=== PATIENT | female | born 1990 | race African-American/Black ===

== ENCOUNTER 2024-08-26 10:33 | Outpatient (CLI) | payer OTHER, SELFPAY ==
--- NOTE | ~2024-08-26 | US_ITS ---
EXAMINATION: US OB /maternal detail DATE: 08/26/2024 12:04 INDICATION: Encounter for supervision of normal . TECHNIQUE: Real-time ultrasound of the pelvis was performed. COMPARISON: None. FINDINGS: There is a single living fetus in vertex presentation. The placenta is anterior, 5.3 cm from the cer vix. heart rate is 141 beats per minute (bpm). The amniotic fluid volume is subjectively normal . The deepest vertical pocket is 5.2 cm. The cervical length is 3.2 cm on transabdominal images, whic h is normal. There is a nabothian cyst in the cervix. The following biometric data were obtained: Biparietal diameter (BPD): 5.2 cm; head circumference (HC): 19.1 cm; abdominal circumference (AC): 16 .5 cm; femur length (FL): 3.6 cm. These measurements are concordant. Estimated weight is 431 g +/- 65 g, which correlates with the 17th percentile when 12/29/24 is u sed as estimated date of delivery. As single measurements, these parameters are each equal to the following estimated gestational ages: BPD: 21 weeks 4 days. HC: 21 weeks 2 days. AC: 21 weeks 4 days. FL: 21 weeks 4 days. estimated gestational age based solely on measurements from this exam is 21 weeks 4 days +/- 1 weeks 4 days. The cerebral ventricles, cerebellum, cisterna magna, nuchal fold, lip, and spine are normal. The hear t is normal. The diaphragm, stomach, kidneys, and bladder are normal. There are two umbilical arterie s to yield a 3-vessel cord. The cord insertion is normal. IMPRESSION: 1. Single living fetus in vertex presentation. 2. Estimated weight is 431 g +/- 65 g, which correlates with the 17th percentile when 12/29/24 is used as estimated date of delivery. 3. Normal anatomic survey. Reviewed, dictated and finalized at location A. UCHING OPERATOR IMPRESSION: 1. Single living fetus in vertex presentation. 2. Estimated weight is 431 g +/- 65 g, which correlates with the 17th pe rcentile when 12/29/24 is used as estimated date of delivery. 3. Normal anatomic survey.
== END 2024-08-26 10:34 | disposition home or self-care (01) ==
LOC: ANHIMG 10:36
PROVIDERS: Visit Provider Student in an Organized Health Care Education/Training Program
DX: Z34.92 Encounter for supervision of normal pregnancy, unspecified, second trimester (principal); Z3A.21 21 weeks gestation of pregnancy
CPT/HCPCS: 76805

== ENCOUNTER 2024-11-13 09:00 | Outpatient (RCR) | payer OTHER, SELFPAY ==
[2024-11-05 11:14] VITALS: BP 119/49; PULSE 96; TEMP 36.2; O2SAT 100
[2024-11-05] MEDS: ACETAMINOPHEN 325 MG TABLET 650 MG PO (11:29)
[2024-11-05] MEDS: diphenhydrAMINE HCl INJ 50 MG/ML VIAL 25 MG IV PUSH (11:29)
[2024-11-05] MEDS: IRON SUCROSE COMPLEX 200 MG in SODIUM CHLORIDE 0.9% IV 100 ML 440 MG IVPB (11:38)
[2024-11-05 12:25] VITALS: BP 117/69
[2024-11-07 11:19] VITALS: BP 123/65; PULSE 106; TEMP 36.7; O2SAT 100
[2024-11-07] MEDS: ACETAMINOPHEN 325 MG TABLET 650 MG PO (11:36)
[2024-11-07] MEDS: diphenhydrAMINE HCl INJ 50 MG/ML VIAL 25 MG IV PUSH (11:36)
[2024-11-07] MEDS: IRON SUCROSE COMPLEX 200 MG in SODIUM CHLORIDE 0.9% IV 100 ML 440 MG IVPB (11:45)
[2024-11-07 12:23] VITALS: BP 110/59
[2024-11-13 09:10] VITALS: BP 121/37; PULSE 87; RESP 16; TEMP 36.5; O2SAT 100
[2024-11-13] MEDS: ACETAMINOPHEN 325 MG TABLET 650 MG PO (09:33)
[2024-11-13] MEDS: diphenhydrAMINE HCl INJ 50 MG/ML VIAL 25 MG IV PUSH (09:34)
[2024-11-13] MEDS: IRON SUCROSE COMPLEX 200 MG in SODIUM CHLORIDE 0.9% IV 100 ML 440 MG IVPB (09:37)
[2024-11-13 10:32] VITALS: BP 120/53
== END 2024-11-18 11:12 | disposition other institution (70) ==
LOC: AMCINF 09:00
PROVIDERS: Referring Provider Student in an Organized Health Care Education/Training Program; Visit Provider Internal Medicine Hematology & Oncology
DX: O99.019 Anemia complicating pregnancy, unspecified trimester (principal); D64.9 Anemia, unspecified; Z3A.00 Weeks of gestation of pregnancy not specified
CPT/HCPCS: 96365; 96374; 96375; A9270; J1200; J1756

== ENCOUNTER 2024-11-14 08:20 | Emergency (ER) | payer OTHER, SELFPAY ==
[2024-11-14 08:25] VITALS: BP 151/75; PULSE 94; RESP 14; TEMP 37.1; O2SAT 98
--- OUTSIDE RECORDS SUMMARY | 2024-11-14 08:32 | XMS_ITS | Continuity of Care Document ---
Author Organization [facility] Address [address] [place] [address] Phone Care Team Providers Care Barmaid Name Role Phone Unavailable Unavailable Unavailable Procedures Procedure Date OFFICE/OUTPATIENT VISIT, NEW Results Test Name Date and Time Measure Units Reference Range Abnormal Flag Status Comments Panel Description: HCG, QL, URINE Final HCG, QL, URINE 0 18:55:00 NEGATIVE NEGATIVE N Final Test performed at [facility] [address] [id number] or: KIM FOFANA MT([facility]) Advance Directives Directive Yes / No Effective Date File Name Resuscitation Not Answered N/A N/A Life Support Not Answered N/A N/A Intubation Not Answered N/A N/A Antibiotics Not Answered N/A N/A IV Fluid Support Not Answered N/A N/A Tube Feed Not Answered N/A N/A Other Directive N/A N/A WARNING:The information contained in this section is historical and is provided for information only and does not constitute a legal document or any assurance that the information is still accurate. Please verify the information with the jackson of the legal document before using it for clinical purposes. Encounters Encounter Description Practice Location Reason(s) For Visit Diagnoses Date Provider Providers Copied on Encounter OFFICE/OUTPAT IENT VISIT, [facility] , [address], [place], [place], [address], [place] tel:[phone] Edilma On Alysia test (chief complaint) examination or test, negative result No Information Family History Family Member Type Diagnosis Age At Onset No Information Payers Payer name Insurance type Covered constitution party ID Authoriza tion(s) No Information Social History Type Description Quantity Date Captured Comments Alcohol Use Details Unknown Caffeine Use Details Unknown Tobacco Use Status No Information Smoking Status No Information Sex Female Chief Complaint And Reason For Visit From encounter dated '09/21/2010 17:40'. test (chief complaint) Reason For Referral Reason For Referral No Information History Of Present Illness Encounter Date Complaint History Of Prese nt Illness No Information Functional Status Date Functional Assessmen t No Information Instructions Date Instruction Additional Infor mation No Information Assessments Type Assessment Date No Information Patient Care Teams Name Effective Dates (start - stop) Status Members No Information
[2024-11-14 09:05] LABS: Basophils Percent Auto 0.3 % (0.2-1.2); Eosinophils Absolute Auto 0.1 K/mm3 (0-0.3); Eosinophils Percent Auto 0.9 % (0-4.4); Hemoglobin 9.3 g/dL (12.0-15.0); Immature Granulocyte Absolute 0.12 K/mm3 (0.00-0.031); Immature Granulocyte Percent A 1.5 % (0-0.5); Lymphocytes Absolute Auto 1.06 K/mm3 (0.9-3.2); Lymphocytes Percent Auto 13.4 % (18.3-44.2); Mean Corpuscular Hemoglobin 24.4 pg (26-34); Mean Corpuscular Volume 81.4 fl (80-100); Monocytes Absolute Auto 0.5 K/mm3 (0.1-0.6); Monocytes Percent Auto 6.4 % (2.6-8.5); Neutrophils Absolute Auto 6.2 K/mm3 (1.3-6.7); Neutrophils Percent Auto 77.5 % (45.5-73.1); Platelet Count Result 241 k/mm3 (150-375); Red Blood Count 3.81 M/mm3 (4.2-5.4); Red Cell Distribution Width 16.2 % (11.5-14.5); White Blood Count 7.9 K/mm3 (4.5-10.0)
[2024-11-14 09:12] LABS: Add Urine Microscopic? YES; Appearance Urine Clear (Clear); Bacteria Urine None Seen /hpf; Bilirubin Urine Negative (Negative); Blood Urine 2+ (Negative); Color Urine Yellow (Yellow); Glucose Urine UA Negative (Negative); Ketones Urine Negative (Negative); Leukocyte Esterase Ur Trace LEU/UL (Negative); Nitrate Urine Negative (Negative); Protein Urine 1+ mg/dL (Negative); RBC Urine >100 /hpf (0-2); Specific Grav Ur 1.022 (1.001-1.035); Squamous Epithelial Cell Urine Occasional /hpf (Few); WBC Urine 0-5 /hpf (0-3)
[2024-11-14 09:15] LABS: Alanine Aminotransferase 11 U/L (6-35); Albumin Level 3.5 g/dL (3.5-5.1); Alkaline Phosphatase 120 U/L (38-126); Anion Gap 8 mmol/L (4-12); Aspartate Amino Transferase 18 U/L (14-36); Bilirubin,Total 0.5 mg/dL (0.2-1.3); Blood Urea Nitrogen 4 mg/dL (7-17); Calcium 8.6 mg/dL (8.4-10.2); Carbon Dioxide 23 mmol/L (22-30); Chloride 106 mmol/L (98-107); Estimated CRCL calculation 169 ml/min; Estimated Glomerular Filt Rate > 60; Glucose 79 mg/dL (65-110); Lipase 36 U/L (23-300); Potassium 3.3 mmol/L (3.4-5.0); Sodium 137 mmol/L (137-145)
--- NOTE | 2024-11-14 09:46 | ED.NAVMDI ---
HPI - Nausea/Vomiting/Diarrhea General Chief complaint: Nausea/Vomiting/Diarrhea Stated complaint: diarrhea and vomiting Time Seen by Provider: 11/14/24 09:08 History of Present Illness HPI Narrative: 34-year-old female who is currently 32 weeks and 3 days presents to the emergency department for N/V/D for approximately 2 days. Patient reports increased acid reflux/burning in her epigastrium, nausea and vomiting and a few episodes of diarrhea. Patient has been receiving iron transfusions due to anemia during . States each time she is in our transfusion she has diarrhea. She denies abdominal pain or cramping, vaginal bleeding or leakage of fluids, cough or congestion, fevers. She states this has otherwise been uncomplicated. She is . Denies recent sick contacts. Denies dysuria, hematuria. Her OBGYN is Dr. Gonzales. Related Data Home Medications ?Medication ?Instructions ?Recorded ?Confirmed ?Last Taken ?Type acetaminophen 500 mg tablet 500 mg PO Q6H PRN pain 11/05/24 11/05/24 Unknown History Allergies Allergy/AdvReac Type Severity Reaction Status Date / Time No Known Allergies Allergy Verified 11/13/24 09:09 Review of Systems Review of Systems: All systems reviewed & are unremarkable except as noted in HPI and below PMFSH Past Medical History Medical History Suppression of menses Surgical History Surgical History Hx of appendectomy Family History Family History Grandparent Diabetes mellitus Hypertension Social History Social History Smoking status: Never smoker Alcohol intake: current Alcohol use details: not currently Substance use: never Substance use type: does not use Do You Feel Safe in your Home?: Yes Lack of Transportation: No Lack of Food: Never True Current Housing: I Have Housing Concerned About Future Housing: No Difficulty Paying Gas/Electric Bills: No Difficulty Paying for Meds: No Currently Unemployed: No Education: High School Diploma/GED Living arrangements: with family Occupation/Education: unemployed Gender identity (if verbalized by the patient): Female Spiritual care concerns: No Exam Narrative: GENERAL: Well-appearing, well-nourished, and in no acute distress. HEAD: Normocephalic, atraumatic. EYES: PERRLA and EOMI. ENT: Nares clear, no rhinorrhea or epistaxis. Mucous membranes moist. NECK: Supple. CHEST: Clear to auscultation. No respiratory distress. HEART: Regular rate and rhythm. No murmur heard. Normal peripheral pulses. ABDOMEN: Normoactive bowel sounds. Abdomen gravid, nontender. No rebound, guarding or rigidity EXTREMITIES: Normal range of motion. No edema. SKIN: Warm, dry, no rash. NEURO: No focal deficits. Alert and oriented x3 Course Vital Signs Vital signs: Vital Signs Temperature 98.8 F 11/14/24 08:25 Pulse Rate 94 11/14/24 08:25 Respiratory Rate 14 11/14/24 08:25 Blood Pressure 151/75 H 11/14/24 08:25 Pulse Oximetry 98 11/14/24 08:25 Oxygen Delivery Room Air 11/14/24 08:25 Temperature 98.3 F 11/14/24 09:48 Pulse Rate 90 11/14/24 09:48 Respiratory Rate 16 11/14/24 09:48 Blood Pressure 117/67 11/14/24 09:48 Pulse Oximetry 100 11/14/24 09:48 Oxygen Delivery Room Air 11/14/24 08:25 MDM - Nausea/Vomiting/Diarrhea MDM Narrative Medical decision making narrative: 34-year-old female who is currently 32w3d presents to the ED for N/V/D for 2 days. Triage vitals with hypertension of 151/75, otherwise unremarkable. Repeat blood pressure has normalized. Plan to obtain lab work including electrolytes, lipase, UA, heart tones, viral swabs and provide IV fluids, Reglan, Pepcid, GI cocktail and re-evaluate. CBC remarkable for no leukocytosis, chronic anemia with a hemoglobin of 9.3. Chemistries reveal mild hypokalemia of 3.3 with mild hypomagnesemia of 1.5. Stable creatinine and BUN. UA does have a large amount of hematuria with 1+ protein, proteinuria likely secondary to hematuria. No bacteriuria. Patient denies vaginal bleeding, however it discusses this is possible source of hematuria that is seen. She is agreeable for a pelvic exam for further evaluation given blood may be secondary to vaginal bleeding. Lipase is normal. I did consider pre-eclampsia given elevated BP upon arrival and 1+ proteinuria, however BP has normalized and small amount of protein is likely secondary to hematuria. Will consult patient's OBGYN prior to discharge. Prior to patient receiving IV fluids, potassium and magnesium repletion, pelvic exam and consultation with OB, patient is requesting to sign out against medical advice. I discussed that I am unable to further investigate source of hematuria, provide electrolyte repletion, etc. Patient still would like to sign out against medical advice. I strongly advised increase fluid intake with Gatorade/Pedialyte and close follow-up with her OBGYN. Lab Data 11/14/24 08:56 11/14/24 08:56 Labs: Lab Results 11/14/24 11/14/24 Range/Units 08:56 09:48 WBC 7.9 (4.5-10.0) K/mm3 RBC 3.81 L (4.2-5.4) M/mm3 Hgb 9.3 L (12.0-15.0) g/dL Hct 31.0 L (37.0-47.0) % MCV 81.4 (80-100) fl MCH 24.4 L (26-34) pg MCHC 30.0 L (32-36) g/dl RDW 16.2 H (11.5-14.5) % Plt Count 241 (150-375) k/mm3 MPV 12.0 H (7.4-10.4) fl Immature Gran % (Auto) 1.5 H (0-0.5) % Neut % (Auto) 77.5 H (45.5-73.1) % Lymph % (Auto) 13.4 L (18.3-44.2) % [place] % (Auto) 6.4 (2.6-8.5) % Eos % (Auto) 0.9 (0-4.4) % Baso % (Auto) 0.3 (0.2-1.2) % Lymph # (Auto) 1.06 (0.9-3.2) K/mm3 [place] # (Auto) 0.5 (0.1-0.6) K/mm3 Eos # (Auto) 0.1 (0-0.3) K/mm3 Baso # (Auto) 0.0 (0.0-0.1) K/mm3 Abs Immat Gran (auto) 0.12 H (0.00-0.031) K/mm3 Absolute Neuts (auto) 6.2 (1.3-6.7) K/mm3 Absolute Nucleated RBC 0.000 (0.0-0.012) K/mm3 Nucleated RBC % 0.0 (0.0-0.2) % Sodium 137 (137-145) mmol/L Potassium 3.3 L (3.4-5.0) mmol/L Chloride 106 (98-107) mmol/L Carbon Dioxide 23 (22-30) mmol/L Anion Gap 8 (4-12) mmol/L BUN 4 L (7-17) mg/dL Creatinine 0.39 L (0.7-1.0) mg/dL Estim Creat Clear Calc 169 ml/min Estimated GFR > 60 (59 - ) Glucose 79 (65-110) mg/dL Calcium 8.6 (8.4-10.2) mg/dL Magnesium 1.5 L (1.6-2.3) mg/dL Total Bilirubin 0.5 (0.2-1.3) mg/dL AST 18 (14-36) U/L ALT 11 (6-35) U/L Alkaline Phosphatase 120 (38-126) U/L Total Protein 7.0 (6.3-8.2) g/dL Albumin 3.5 (3.5-5.1) g/dL Lipase 36 (23-300) U/L Urine Color Yellow (Yellow) Urine Appearance Clear (Clear) Urine pH 7.0 (5.0-9.0) Ur Specific [place] 1.022 (1.001-1.035) Urine Protein 1+ H (Negative) mg/dL Urine Glucose (UA) Negative (Negative) mg/dL Urine Ketones Negative (Negative) mg/dL Ur Blood (Man) 2+ H (Negative) Urine Nitrate Negative (Negative) Urine Bilirubin Negative (Negative) Urine Urobilinogen 1.0 (<2.0) mg/dL Leukocyte Esterase Rfl Trace H (Negative) EARL/UL Urine RBC >100 H (0-2) /hpf Urine WBC 0-5 (0-3) /hpf Ur Squamous Epith Cells Occasional (Few) /hpf Urine Bacteria None seen /hpf Urine Casts 3-5 Influenza A (RT-PCR) Negative (Negative) Influenza B (RT-PCR) Negative (Negative) RSV (RT-PCR) Negative (Negative) SARS-CoV-2 RNA (RT-PCR) Negative (Negative) Discharge Plan Discharge Clinical Impression: Nausea and vomiting during Patient Disposition: Home, Self-Care Condition: Stable Instructions: Antibiotic Form, Acute Nausea and Vomiting (ED) Additional Instructions: Please make sure to drink plenty of fluids including water, Gatorade, Pedialyte. Follow-up closely with your OBGYN Dr. Gonzales. You left against medical advice today prior to us repleting your magnesium and potassium. Please eat food sources rich and electrolytes such is bananas. We were unable to find source of blood in your urine without further investigation. Please follow up with your OBGYN regarding this. Return to the ER if you desire further workup and treatment, you are unable to tolerate foods or fluids, or develop worsening or changing symptoms. Patient Language: Khmer Prescriptions: New metoclopramide HCl 10 mg tablet 10 mg PO Q6H PRN (Reason: nausea and vomiting) Qty: 14 0RF No Action acetaminophen 500 mg tablet 500 mg PO Q6H PRN (Reason: pain) Patient Comments: . Follow-up/Referrals: UNKNOWN,DOCTOR [Primary Care Provider] - Charlie Gonzales MD [Physician] -
[2024-11-14 09:48] VITALS: BP 117/67; PULSE 90; RESP 16; TEMP 36.8; O2SAT 100
--- OUTSIDE RECORDS SUMMARY | 2024-11-14 10:02 | XMS_ITS | Continuity of Care Document ---
Author Organization [facility] Address [address] [place] [address] Phone Care Team Providers Care Admiralty Lawyer Name Role Phone Unavailable Unavailable Unavailable Procedures Procedure Date OFFICE/OUTPATIENT VISIT, NEW Results Test Name Date and Time Measure Units Reference Range Abnormal Flag Status Comments Panel Description: HCG, QL, URINE Final HCG, QL, URINE 0 18:55:00 NEGATIVE NEGATIVE N Final Test performed at [facility] [address] [id number] or: KIM FOFANA MT([facility]) Advance Directives Directive Yes / No Effective [...] Providers Copied on Encounter OFFICE/OUTPAT IENT VISIT, [facility] , [address], [place], [place], [address], [place] tel:[phone] Edilma On Alysia test (chief complaint) examination or test, negative result No Information Family History Family Member Type Diagnosis Age At Onset No Information Payers Payer name Insurance type Covered alliance party ID Authoriza tion(s) No Information Social [...]
[2024-11-14 10:10] LABS: Magnesium 1.5 mg/dL (1.6-2.3)
--- NOTE | 2024-11-14 10:24 | PC.NURSE ---
Pt refusing all orders including meds. Pt states This is the slowest treatment I have ever received. I am 34 weeks I should be in your OB department RN & Janis RODRIGEZ explained to pt that she is not having any signs of labor, she will need to be screened for any infectious or viral process prior to us sending her to OB. Pt on her phone with no eye contact with staff. States she wants to go. AMA documents signed
[2024-11-14 10:30] LABS: Influenza A QL RT-PCR Negative (Negative); Influenza B QL RT-PCR Negative (Negative); RSV RNA, RT-PCR Negative (Negative); SARS-CoV-2 RNA PCR Negative (Negative)
== END 2024-11-14 10:28 | disposition home or self-care (01) ==
PROVIDERS: Emergency Medicine; Emergency Provider Physician Assistant
DX: O21.2 Late vomiting of pregnancy (principal); Z3A.32 32 weeks gestation of pregnancy; Z20.822 Contact with and (suspected) exposure to COVID-19
CPT/HCPCS: 36415; 80053; 81001; 83690; 83735; 85025; 87637; 96361; 96374; 96375; 99284

== ENCOUNTER 2024-12-02 11:07 | Outpatient (CLI) | payer OTHER, SELFPAY ==
[2024-12-02 11:41] VITALS: BP 121/57; PULSE 91
[2024-12-02 11:46] VITALS: BP 116/54; PULSE 84
[2024-12-02 11:47] VITALS: BMI 32.4
[2024-12-02 11:55] LABS: Basophils Percent Auto 0.3 % (0.2-1.2); Eosinophils Absolute Auto 0.1 K/mm3 (0-0.3); Hematocrit 29.5 % (37.0-47.0); Immature Granulocyte Absolute 0.05 K/mm3 (0.00-0.031); Immature Granulocyte Percent A 0.7 % (0-0.5); Lymphocytes Absolute Auto 1.05 K/mm3 (0.9-3.2); Mean Corpuscular HGB Conc 30.5 g/dl (32-36); Mean Corpuscular Hemoglobin 24.5 pg (26-34); Mean Corpuscular Volume 80.2 fl (80-100); Mean Platelet Volume 11.9 fl (7.4-10.4); Monocytes Absolute Auto 0.5 K/mm3 (0.1-0.6); Monocytes Percent Auto 7.4 % (2.6-8.5); Neutrophils Absolute Auto 5.3 K/mm3 (1.3-6.7); Neutrophils Percent Auto 75.6 % (45.5-73.1); Platelet Count Result 229 k/mm3 (150-375); Red Blood Count 3.68 M/mm3 (4.2-5.4); Red Cell Distribution Width 15.1 % (11.5-14.5)
[2024-12-02 12:01] VITALS: BP 117/52; PULSE 85
[2024-12-02 12:02] LABS: Add Urine Microscopic? YES; Appearance Urine Turbid (Clear); Bacteria Urine None Seen /hpf; Bilirubin Urine Negative (Negative); Blood Urine Negative (Negative); Color Urine Yellow (Yellow); Glucose Urine UA Negative (Negative); Ketones Urine Negative (Negative); Leukocyte Esterase Ur Negative LEU/UL (Negative); Nitrate Urine Negative (Negative); Non Pathogenic Casts 0-2; Protein Urine Negative (Negative); RBC Urine 0-2 /hpf (0-2); Squamous Epithelial Cell Urine None Seen /hpf (Few); WBC Urine 0-5 /hpf (0-3); pH Urine 7.5 (5.0-9.0)
[2024-12-02 12:14] LABS: Albumin Level 3.2 g/dL (3.5-5.1); Aspartate Amino Transferase 19 U/L (14-36); Bilirubin,Total 0.5 mg/dL (0.2-1.3); Blood Urea Nitrogen 7 mg/dL (7-17); Carbon Dioxide 21 mmol/L (22-30); Estimated CRCL calculation 157 ml/min; Estimated Glomerular Filt Rate > 60
[2024-12-02 12:16] VITALS: BP 113/45; PULSE 87
[2024-12-02 12:23] LABS: Alanine Aminotransferase 11 U/L (6-35); Alkaline Phosphatase 131 U/L (38-126); Anion Gap 8 mmol/L (4-12); Calcium 9.2 mg/dL (8.4-10.2); Chloride 107 mmol/L (98-107); Glucose 114 mg/dL (65-110); Potassium 3.2 mmol/L (3.4-5.0); Sodium 136 mmol/L (137-145)
[2024-12-02 12:30] VITALS: BP 117/54; PULSE 90
[2024-12-02 12:45] VITALS: BP 103/52; PULSE 81
[2024-12-02 12:49] LABS: Creatinine Urine 130.1 mg/dL; Total Protein Urine Random 13 mg/dL
--- OUTSIDE RECORDS SUMMARY | 2024-12-02 13:21 | XMS_ITS | Continuity of Care Document ---
Author Organization [facility] Address [address] [place] [address] Phone Care Team Providers Care Small Engine Trainer Name Role Phone Unavailable Unavailable Unavailable Procedures Procedure Date OFFICE/OUTPATIENT VISIT, NEW Results Test Name Date and Time Measure Units Reference Range Abnormal Flag Status Comments Panel Description: HCG, QL, URINE Final HCG, QL, URINE 0 18:55:00 NEGATIVE NEGATIVE N Final Test performed at [facility] [employer] [address] [id number] or: KIM FOFANA MT([facility]) Advance Directives Directive Yes / No [...] Providers Copied on Encounter OFFICE/OUTPAT IENT VISIT, [facility] , [address], [place], [place], [address], [place] tel:[phone] Edilma On [place] test (chief complaint) examination or test, negative [...]
== END 2024-12-02 12:59 | disposition home or self-care (01) ==
LOC: ANHOBOP 11:14 → ANHOBPP 11:16
PROVIDERS: Visit Provider Student in an Organized Health Care Education/Training Program
DX: O13.9 Gestational [pregnancy-induced] hypertension without significant proteinuria, unspecified trimester (principal); Z3A.00 Weeks of gestation of pregnancy not specified
CPT/HCPCS: 36415; 59025; 80053; 81001; 82570; 84156; 84550; 85025; 99199

== ENCOUNTER 2024-12-09 16:57 | Inpatient (IN) | payer OTHER, SELFPAY ==
--- OUTSIDE RECORDS SUMMARY | 2024-12-09 18:28 | XMS_ITS | Continuity of Care Document ---
Author Organization [facility] Address [address] [place] [address] Phone Care Team Providers Care C D Area Supervisor Name Role Phone Unavailable Unavailable Unavailable Procedures Procedure Date OFFICE/OUTPATIENT VISIT, NEW Results Test Name Date and Time Measure Units Reference Range Abnormal Flag Status Comments Panel Description: HCG, QL, URINE Final HCG, QL, URINE 0 18:55:00 NEGATIVE NEGATIVE N Final Test performed at [employer] [address] [id number] or: KIM FOFANA MT([facility]) Advance Directives Directive Yes / No [...] Providers Copied on Encounter OFFICE/OUTPAT IENT VISIT, [facility] , [address], [place], [place], [address], [place] tel:[phone] Edilma On [place] test (chief complaint) examination or test, negative result No Information Family History Family Member Type Diagnosis Age At Onset No Information Payers Payer name Insurance type Covered democrat ID Authoriza tion(s) No Information Social History [...]
[2024-12-09 18:30] VITALS: TEMP 36.6
[2024-12-09 18:50] LABS: Basophils Percent Auto 0.2 % (0.2-1.2); Eosinophils Absolute Auto 0.1 K/mm3 (0-0.3); Eosinophils Percent Auto 1.4 % (0-4.4); Hemoglobin 9.7 g/dL (12.0-15.0); Immature Granulocyte Absolute 0.05 K/mm3 (0.00-0.031); Immature Granulocyte Percent A 0.6 % (0-0.5); Lymphocytes Absolute Auto 1.36 K/mm3 (0.9-3.2); Lymphocytes Percent Auto 15.7 % (18.3-44.2); Mean Corpuscular HGB Conc 31.3 g/dl (32-36); Mean Corpuscular Volume 79.9 fl (80-100); Mean Platelet Volume 11.8 fl (7.4-10.4); Monocytes Absolute Auto 0.6 K/mm3 (0.1-0.6); Monocytes Percent Auto 7.3 % (2.6-8.5); Neutrophils Absolute Auto 6.5 K/mm3 (1.3-6.7); Neutrophils Percent Auto 74.8 % (45.5-73.1); Platelet Count Result 241 k/mm3 (150-375); Red Blood Count 3.88 M/mm3 (4.2-5.4); Red Cell Distribution Width 15.1 % (11.5-14.5); White Blood Count 8.6 K/mm3 (4.5-10.0)
[2024-12-09 18:51] VITALS: BP 127/56; PULSE 82; BMI 32.1
--- NOTE | 2024-12-09 18:53 | LDADM ---
This patient, Estefani Brown, was admitted to Labor/Delivery/Recovery 105 on 12/09/24 at 16:57. Plans for labor, pain management and were discussed with patient. Patient/family oriented to hospital policies and general routines including ID bracelet, bed and alarms, visiting hours, pain management, procedures, bathroom and other care routines, personal items, smoking policy, room service/diet and guest tray routines, infant security routines, and visiting hours. Patient/Family are encouraged to report perceived risks to care and to ask questions if they do not understand what they are told or what they should do. See OBIX for further documentation.
[2024-12-09] MEDS: DINOPROSTONE 10 MG VAG INSERT VAGINAL (19:00)
[2024-12-09 19:41] LABS: HIV 1/2 Ab P24 Ag Result Negative (Negative)
[2024-12-09 19:54] LABS: Syphilis IgG/IgM Antibody Negative (Negative)
--- NOTE | 2024-12-09 22:39 | P.PNAN_ITS ---
Anes - Eval Pre Procedure Procedure: labor pain mananagement Date/Time: 12/09/24 22:39 Surgeon: Christian Preop Diagnosis: pain during labor Pre Op Diagnosis: Induction of Labor Patient Data Age: 34 Gender: F Height: 1.63 m Weight: 85 kg Last Vital Signs Temp 97.9 F 12/09/24 18:30 Pulse 82 12/09/24 18:51 BP 127/56 L 12/09/24 18:51 O2 Del Method Room Air 12/09/24 18:53 Allergies Allergy/AdvReac Type Severity Reaction Status Date / Time No Known Allergies Allergy Verified 12/09/24 19:09 Home Medications ?Medication ?Instructions ?Recorded ?Confirmed ?Type acetaminophen 500 mg tablet 500 mg PO Q6H PRN pain 11/05/24 12/09/24 History Laboratory Tests 12/09/24 18:42 WBC 8.6 K/mm3 (4.5-10.0) RBC 3.88 L M/mm3 (4.2-5.4) Hgb 9.7 L g/dL (12.0-15.0) Hct 31.0 L % (37.0-47.0) MCV 79.9 L fl (80-100) MCH 25.0 L pg (26-34) MCHC 31.3 L g/dl (32-36) RDW 15.1 H % (11.5-14.5) Plt Count 241 k/mm3 (150-375) MPV 11.8 H fl (7.4-10.4) Immature Gran % (Auto) 0.6 H % (0-0.5) Neut % (Auto) 74.8 H % (45.5-73.1) Lymph % (Auto) 15.7 L % (18.3-44.2) [place] % (Auto) 7.3 % (2.6-8.5) Eos % (Auto) 1.4 % (0-4.4) Baso % (Auto) 0.2 % (0.2-1.2) Lymph # (Auto) 1.36 K/mm3 (0.9-3.2) [place] # (Auto) 0.6 K/mm3 (0.1-0.6) Eos # (Auto) 0.1 K/mm3 (0-0.3) Baso # (Auto) 0.0 K/mm3 (0.0-0.1) Abs Immat Gran (auto) 0.05 H K/mm3 (0.00-0.031) Absolute Neuts (auto) 6.5 K/mm3 (1.3-6.7) Absolute Nucleated RBC 0.000 K/mm3 (0.0-0.012) Nucleated RBC % 0.0 % (0.0-0.2) Syphilis IgG/IgM Ab Negative (Negative) HIV 1&2 Ab/P24 Ag 4thGn Negative (Negative) Blood Type A Positive Antibody Screen Negative Patient hx anesthesia problems: none Family hx anesthesia problems: none Results Review: All pre-operative results and documents have been reviewed as part of the pre- operative evaluation. [facility] Past Medical History Medical History Suppression of menses Surgical History Surgical History Hx of appendectomy Family History Family History Grandparent Diabetes mellitus Hypertension Social History Social History Smoking status: Never smoker Second hand tobacco smoke exposure: No Alcohol intake: current Alcohol use details: not currently Substance use: never Substance use type: does not use Do You Feel Safe in your Home?: Yes Lack of Transportation: No Lack of Food: Never True Current Housing: I Have Housing Concerned About Future Housing: No Difficulty Paying Gas/Electric Bills: No Difficulty Paying for Meds: No Currently Unemployed: No Education: High School Diploma/GED Difficulty w/ Childcare or Family Care: No Living arrangements: with family Occupation/Education: unemployed Gender identity (if verbalized by the patient): Female Spiritual care concerns: No Exam Day of Procedure 12/09/24 22:39
[2024-12-09 23:57] VITALS: PULSE 75; O2SAT 100
[2024-12-10] VITALS (194 sets, daily range): BP systolic 97–146; BP diastolic 41–104; PULSE 28–118; RESP 18; TEMP 36.2–36.9; O2SAT 83–100
[2024-12-10] MEDS: FAMOTIDINE 20 MG/2 ML VIAL (03:12)
[2024-12-10] MEDS: LACTATED RINGERS 1,000 ML 125 ML IV CONT ×3 (07:44→14:12)
[2024-12-10] MEDS: AMPICILLIN 2 GM/NS 100 ML 2 GM/100 ML BAG IVPB (07:44)
[2024-12-10] MEDS: OXYTOCIN 30 UNITS/NS 500 ML 30 UNITS/500 ML BAG IV CONT (07:45)
--- NOTE | 2024-12-10 09:45 | WPDHPUPDATE1 ---
History and Physical Update Update Date/Time: 12/10/24 09:45 34 yo who presents at 37w for IOL for GHTN History and Physical has been reviewed, including an updated exam of the patient. There are NO changes in the patient's condition. Risks, benefits, and alternatives have been discussed and questions answered. Patient agrees to proceed with procedure. -anemia- 9.7/33, required transfusion in previous -h/o GHTN, PreE- low dose ASA -depression-no meds -GBS Positive, will need abx in labor A/P admit to L&D routine admission orders Rh+ GBS+, will initiate abx in labor plan for cervidil IOL continuous EFM
[2024-12-10] MEDS: AMPICILLIN 1 GM/NS 50 ML 1 GM/50 ML BAG IVPB ×2 (12:23→16:38)
[2024-12-10] MEDS: ACETAMINOPHEN ELIXIR 325 MG/10.15 ML UDC 1000 MG PO (13:58)
[2024-12-10] MEDS: ONDANSETRON INJ 4 MG/2 ML VIAL IV PUSH (18:45)
--- NOTE | 2024-12-10 19:52 | P.PCNOB_ITS ---
OB - Vaginal Delivery Note Procedure Delivery date: 12/10/24 Events: Gestational Hypertension Induction method: Per Cervidil Protocol Delivery augmentation: Rupture of Membranes and Pitocin Delivery monitor: External FHT and Internal Uterine Route of delivery: Episiotomy description: None Laceration Description: None Specimen: Yes (placenta) Quantitative Blood Loss (ml): 150 Anesthesia type: Epidural Disposition: Floor Complications: No immediate complications Narrative: Patient pushed for a spontaneous vaginal delivery. The fetus was delivered atraumatically and placed on the maternal abdomen. The cord was clamped and cut after 1 minute of life. The cord was double clamped and cut and a segment of cord was collected for cord gases. Cord blood was collected for blood type and C oomb's testing. The placenta delivered spontaneously and was noted to be intact. The perineum was inspected and noted to be intact. The uterus was firm and good hemostasis was noted. [place] Baby Date of : 12/10/24 Time of : 19:46 Gestational Age by Date: 37 Infant gender: Male presentation: vertex position: Right Occiput Anterior Placenta delivery description: Spontaneous Cord Vessel Description: 3 Vessels score one minute: 8 score five minutes: 9
[2024-12-10] MEDS: OXYTOCIN 30 UNITS/NS 500 ML 30 UNITS/500 ML BAG 125 UNITS IV CONT (20:10)
[2024-12-10] MEDS: IBUPROFEN 600 MG TABLET PO (21:01)
[2024-12-10] MEDS: BENZOCAINE 20% AER SPR (*SP) 56 GM CAN 1 SPRAY TOPICAL (21:03)
[2024-12-10] MEDS: WITCH HAZEL 40 PADS 1 PAD TOPICAL (21:03)
[2024-12-10] MEDS: ACETAMINOPHEN 325 MG TABLET 650 MG PO (21:32)
--- NOTE | 2024-12-10 22:19 | OBPPTRN ---
Patient transferred to post room #280 via wheelchair. Support person present. Oriented to unit, room, information board, rooming in, admission packet and security measures. Patient verbalizes understanding.
[2024-12-10] MEDS: HYDROcodone/acetaminophen (*CRX) 5-325 MG TABLET 1 TAB PO (23:50)
[2024-12-11 04:00] VITALS: BP 127/80; PULSE 77; RESP 18; TEMP 36.9; O2SAT 100
[2024-12-11 05:40] LABS: Hematocrit 33.5 % (37.0-47.0); Hemoglobin 9.8 g/dL (12.0-15.0)
[2024-12-11] MEDS: POLYSACCHARIDE IRON COMPLEX 150 MG CAPSULE PO ×2 (06:45→17:05)
[2024-12-11] MEDS: DOCUSATE SODIUM 100 MG CAPSULE PO ×2 (06:46→17:05)
[2024-12-11 07:30] VITALS: BP 115/61; PULSE 83; RESP 18; TEMP 36.6; O2SAT 100
[2024-12-11] MEDS: IBUPROFEN 600 MG TABLET PO ×2 (07:56→17:05)
[2024-12-11] MEDS: ACETAMINOPHEN 325 MG TABLET 650 MG PO ×2 (07:57→17:05)
--- NOTE | 2024-12-11 11:23 | P.PNOB_ITS ---
OB - PN: Subj Subjective Date/time seen: 12/11/24 11:23 Patient comments: no complaints, pain well controlled and tolerating diet [place] feeding status: exclusively breast feeding Narrative: patient doing well this AM. No complaints. Pain is well controlled. She reports minimal bleeding. She is ambulating and voiding without difficulty. She is tolerating PO. She denies N/V, fever, chills. OB - PN: Obj Data Labs 12/11/24 03:33 Labs: Laboratory Results - last 24 hr 12/11/24 03:33 Hgb 9.8 L Hct 33.5 L OB - PN A/P Plan day: 1 Plan: routine care Comments: patient doing well H/H stable at 9.8/33, will continue iron supplementation patient desires circumcision. risks, benefits, alternatives discussed. Will plan for circumcision today Patient was having some increased pain overnight. Patient received [place] p.r.n. and states pain is tolerable Will try to wean off [place] today prior to discharge continue routine care Time Spent With Patient Time: Total time spent is greater than 50% in coordination of care (as documented) at patient's floor/unit and/or counseling patient: Time with patient: less than 15 minutes Review of Systems 2 Review of Systems: All systems reviewed & are unremarkable except as noted in HPI and below Exam 2 Const: General: comfortable and no acute distress Resp: Effort & Inspection: normal respiratory effort Cardio: Rate: regular rate GI: GI Palp: Yes Soft to palpation and No Tenderness to palpation present (GI) Auscultation: normal bowel sounds Other: fundus firm and below umbilicus. Psych: Affect: normal affect
[2024-12-11 12:38] VITALS: BP 129/82; PULSE 74; RESP 16; TEMP 37; O2SAT 100
--- NOTE | 2024-12-11 12:57 | WPDANLDPN2 ---
Anes-Prog Note L&D Date/Time: 12/11/24 12:57 Comfortable throughout: labor and delivery Neuraxial method: epidural Epidural/Spinal procedure site: clean & non-tender Neuro status: Neuro function grossly intact. Cardiovascular status: normal Respiratory status: normal Airway patency: baseline Mental status: baseline Post-Op hydration status: normal Vital Signs: Last Vital Signs Temp 37.0 C 12/11/24 12:38 Pulse 74 12/11/24 12:38 Resp 16 12/11/24 12:38 BP 129/82 12/11/24 12:38 Pulse Ox 100 12/11/24 12:38 O2 Del Method Room Air 12/09/24 18:53 Pain score (VAS): 1 I/O: Intake & Output 12/10/24 12/11/24 12/11/24 23:59 07:59 15:59 Intake Total 0 1300 Output Total 058 6925 Balance -078 -283 Patient feedback: Patient satisfied with anesthetic care.
--- NOTE | 2024-12-11 18:29 | P.DS_ITS ---
DS: Admitting Diagnosis Discharge Date 12/11/24 Admitting Diagnosis intrauterine gestational hypertension anemia DS: Discharge Diagnosis Discharge Diagnosis (1) Normal vaginal delivery: Code(s): O80 - Encounter for full-term uncomplicated delivery Status: Acute OB - DS: Summary OB Procedures : None OB Procedures Intrapartum: Spontaneous Vag Delivery OB Procedures: : None Peripartum Data Laceration Description: None Episiotomy description: None Status at Discharge Functional status at discharge: independent ambulation Overall status at discharge: patient is back to baseline Time Spent with Patient Time attestation: Total time spent providing and/or coordinating discharge services: Time spent: Less than 30 minutes Exam Const: General: comfortable and no acute distress Resp: Effort & Inspection: normal respiratory effort Auscultation: clear to auscultation bilaterally Cardio: Rate: regular rate GI: GI Palp: Yes Soft to palpation Auscultation: normal bowel sounds Other: Fundus firm below umbilicus Psych: Appearance: grossly normal Mental Status: mental status grossly normal Affect: normal affect DS: Data Data Completed and Pending Labs on day of discharge: Labs from last 24 hours 12/11/24 03:33 Hgb 9.8 L Hct 33.5 L Discharge Plan Discharge Discharging Clinician: Charlie Gonzales Patient Disposition: Home, Self-Care Activity: as tolerated and pelvic rest Diet: regular Patient Instructions: Antibiotic Form, Vaginal Delivery (DC) Patient Language: Brazilian Stand Alone Forms: General Discharge Information Follow-up/Referrals: Charlie Gonzales MD [Physician] - Discharge Medications: New acetaminophen 500 mg tablet 500 mg PO Q6H PRN (Reason: pain) Qty: 30 0RF ibuprofen 600 mg tablet 600 mg PO Q6H PRN (Reason: pain) Qty: 30 0RF sennosides-docusate sodium [Senna with Docusate Sodium] 8.6-50 mg tablet 1 tab-cap PO HS Qty: 30 0RF ferrous sulfate 325 mg (65 mg iron) tablet 325 mg PO BID Qty: 60 0RF Discontinued acetaminophen 500 mg tablet 500 mg PO Q6H PRN (Reason: pain) Patient Comments: . Date of admission: 12/09/24 16:57 Primary Care Provider: UNKNOWN,DOCTOR Admitting Provider: Charlie Gonzales Attending physician on admission: Charlie Gonzales Condition: Stable
[2024-12-11 19:00] VITALS: BP 127/87; PULSE 90; RESP 16; TEMP 36.8; O2SAT 100
[2024-12-11 23:25] VITALS: BP 116/67; PULSE 64; RESP 16; TEMP 36.8; O2SAT 100
[2024-12-12] MEDS: POLYSACCHARIDE IRON COMPLEX 150 MG CAPSULE PO (07:31)
[2024-12-12 08:40] VITALS: BP 133/90; PULSE 60; RESP 16; TEMP 36.5; O2SAT 99
== END 2024-12-12 12:45 | disposition home or self-care (01) | DRG 560 ==
LOC: ANHLDR 17:10 → ANHOB2 12-10 23:01
PROVIDERS: Admitting Provider Student in an Organized Health Care Education/Training Program; Visit Provider Student in an Organized Health Care Education/Training Program
DX: O13.4 Gestational [pregnancy-induced] hypertension without significant proteinuria, complicating childbirth (principal); Z37.0 Single live birth; Z3A.37 37 weeks gestation of pregnancy; O99.824 Streptococcus B carrier state complicating childbirth; O99.02 Anemia complicating childbirth; D64.9 Anemia, unspecified
CPT/HCPCS: 36415; 85014; 85018; 85025; 86593; 86703; 86850; 86900; 86901; 88307; A9270; G0432; J0290; J2405; J2590; J2795; J7120

== ENCOUNTER 2024-12-18 09:33 | Observation (INO) | payer OTHER, SELFPAY ==
[2024-12-18] VITALS (29 sets, daily range): BP systolic 117–176; BP diastolic 62–108; PULSE 54–86; RESP 14–19; TEMP 36.4–37.3; BMI 29.9
[2024-12-18 09:04] LABS: Basophils Percent Auto 0.5 % (0.2-1.2); Eosinophils Absolute Auto 0.1 K/mm3 (0-0.3); Eosinophils Percent Auto 2.7 % (0-4.4); Hematocrit 37.8 % (37.0-47.0); Hemoglobin 11.4 g/dL (12.0-15.0); Immature Granulocyte Absolute 0.01 K/mm3 (0.00-0.031); Immature Granulocyte Percent A 0.2 % (0-0.5); Lymphocytes Absolute Auto 1.16 K/mm3 (0.9-3.2); Lymphocytes Percent Auto 28.9 % (18.3-44.2); Mean Corpuscular HGB Conc 30.2 g/dl (32-36); Mean Corpuscular Volume 79.6 fl (80-100); Mean Platelet Volume 11.6 fl (7.4-10.4); Monocytes Absolute Auto 0.3 K/mm3 (0.1-0.6); Monocytes Percent Auto 7.2 % (2.6-8.5); Neutrophils Absolute Auto 2.4 K/mm3 (1.3-6.7); Neutrophils Percent Auto 60.5 % (45.5-73.1); Platelet Count Result 339 k/mm3 (150-375); Red Blood Count 4.75 M/mm3 (4.2-5.4); Red Cell Distribution Width 13.8 % (11.5-14.5)
[2024-12-18 09:13] LABS: Alanine Aminotransferase 18 U/L (6-35); Alkaline Phosphatase 117 U/L (38-126); Anion Gap 11 mmol/L (4-12); Aspartate Amino Transferase 22 U/L (14-36); Bilirubin,Total 0.5 mg/dL (0.2-1.3); Blood Urea Nitrogen 8 mg/dL (7-17); Calcium 9.3 mg/dL (8.4-10.2); Carbon Dioxide 21 mmol/L (22-30); Chloride 109 mmol/L (98-107); Estimated Glomerular Filt Rate > 60; Glucose 93 mg/dL (65-110); Potassium 3.7 mmol/L (3.4-5.0); Sodium 141 mmol/L (137-145); Uric Acid 5.7 mg/dL (2.5-7.5)
--- OUTSIDE RECORDS SUMMARY | 2024-12-18 09:17 | XMS_ITS | Continuity of Care Document ---
Author Organization [facility] Address [address] [place] [address] Phone Care Team Providers Care Secretary Of State Name Role Phone Unavailable Unavailable Unavailable Procedures Procedure Date OFFICE/OUTPATIENT VISIT, NEW Results Test Name Date and Time Measure Units Reference Range Abnormal Flag Status Comments Panel Description: HCG, QL, URINE Final HCG, QL, URINE 0 18:55:00 NEGATIVE NEGATIVE N Final Test performed at [facility] [address] [id number] or: KIM FOFANA MT([facility]) Advance Directives Directive Yes / No [...] Providers Copied on Encounter OFFICE/OUTPAT IENT VISIT, [facility] Member Desk [facility] , [address], [place], [place], [id number], [place] tel:[phone] Edilma On Megargel test (chief complaint) examination or test, negative result No Information Family History Family Member Type Diagnosis Age At Onset No Information Payers Payer name Insurance type Covered republican ID Authoriza tion(s) No Information Social History [...]
[2024-12-18] MEDS: ACETAMINOPHEN 500 MG TABLET 1000 MG PO ×2 (09:50→15:31)
[2024-12-18] MEDS: IBUPROFEN 600 MG TABLET PO ×2 (09:51→15:29)
[2024-12-18] MEDS: LABETALOL HCL INJ 100 MG/20 ML VIAL 20 MG IV PUSH (09:53)
[2024-12-18] MEDS: LACTATED RINGERS 1,000 ML 75 ML IV CONT (09:54)
[2024-12-18] MEDS: MAGNESIUM SULF 4 GM/WATER100ML 4 GM/100 ML BAG IVPB (09:55)
--- NOTE | 2024-12-18 10:11 | PC.NURSE ---
1 tylenol tablet dropped on the floor by pt. Wasted and removed 1 more tablet.
[2024-12-18] MEDS: ONDANSETRON INJ 4 MG/2 ML VIAL IV PUSH (10:17)
[2024-12-18] MEDS: MAGNESIUM SULF 20GM/WATER500ML 500 ML 50 MG IV CONT ×2 (10:21→20:47)
--- NOTE | 2024-12-18 10:25 | OBADM ---
This patient, Estefani Brown, admitted to the OB room OB Post 116 for observation. Patient/family oriented to hospital policies and general routines including ID bracelet, bed and alarms, visiting hours, pain management, procedures, bathroom and other care routines, personal items, smoking policy, room service/diet, and visiting hours. Patient/Family are encouraged to report perceived risks to care and to ask questions if they do not understand what they are told or what they should do.
--- NOTE | 2024-12-18 11:40 | PM.IMHP ---
H&P: HPI History of Present Illness Date/Time: 12/18/24 11:40 Chief Complaint: preeclampsia Narrative: 34 yo who presents 8 days from vaginal delivery with complaint of headache and elevated blood pressure. Pt reports an elevated blood pressure at home. She has had an intractable MARRERO for the past few days. Patients was complicated by GHTN. Patient presented with severe range BP ruling her in for preeclampsia. Review of Systems Constitutional: Constitutional: Reports as per HPI, Reports headache(s), Reports lethargy, Reports malaise and Reports poor appetite Cardiovascular: Cardiovascular: Denies chest pain and Denies chest pain at rest Respiratory: Respiratory: Reports no additional respiratory complaints Gastrointestinal: Gastrointestinal: Reports loose stools Allergic/Immunologic: Allergic/Immunologic: Reports GI upset with certain foods PMFSH Past Medical History Medical History Suppression of menses Surgical History Surgical History Hx of appendectomy Family History Family History Grandparent Diabetes mellitus Hypertension Social History Social History Smoking status: Never smoker Second hand tobacco smoke exposure: No Alcohol intake: current Alcohol use details: not currently Substance use: never Substance use type: does not use Do You Feel Safe in your Home?: Yes Lack of Transportation: No Lack of Food: Never True Current Housing: I Have Housing Concerned About Future Housing: No Difficulty Paying Gas/Electric Bills: No Difficulty Paying for Meds: No Currently Unemployed: No Education: High School Diploma/GED Difficulty w/ Childcare or Family Care: No Living arrangements: with family Occupation/Education: unemployed Gender identity (if verbalized by the patient): Female Spiritual care concerns: No Meds Home Medications and Allergies Home Medications ?Medication ?Instructions ?Recorded ?Confirmed ?Type acetaminophen 500 mg tablet 500 mg PO Q6H PRN pain #30 tabs 12/11/24 Rx ferrous sulfate 325 mg (65 mg 325 mg PO BID #60 tabs 12/11/24 Rx iron) tablet ibuprofen 600 mg tablet 600 mg PO Q6H PRN pain #30 tabs 12/11/24 Rx sennosides 8.6 mg-docusate sodium 1 tab-cap PO HS #30 tabs 12/11/24 Rx 50 mg tablet (Senna with Docusate Sodium) Allergies Allergy/AdvReac Type Severity Reaction Status Date / Time No Known Allergies Allergy Verified 12/09/24 19:09 Vital Signs Vital Signs - 24 hr 12/18/24 08:57 12/18/24 09:00 12/18/24 09:15 Temperature Pulse Rate 61 66 54 L Blood Pressure 176/108 H 167/105 H 161/100 H 12/18/24 09:45 12/18/24 09:53 12/18/24 09:55 Temperature 99.2 F Pulse Rate 58 L 58 L Blood Pressure 157/95 H 12/18/24 09:59 12/18/24 10:00 12/18/24 10:05 Temperature Pulse Rate 60 71 86 Blood Pressure 146/88 H 143/74 H 155/84 H 12/18/24 10:11 12/18/24 10:15 12/18/24 10:20 Temperature Pulse Rate 81 81 86 Blood Pressure 135/62 117/79 119/75 12/18/24 10:21 12/18/24 10:25 12/18/24 10:30 Temperature 97.6 F Pulse Rate 69 74 Blood Pressure 117/76 127/84 12/18/24 10:45 12/18/24 11:00 12/18/24 11:15 Temperature Pulse Rate 71 76 82 Blood Pressure 128/78 130/82 127/80 12/18/24 11:30 Temperature Pulse Rate 83 Blood Pressure 133/90 Exam Const: General: cooperative and comfortable Resp: Effort & Inspection: normal respiratory effort and able to speak in complete sentences Cardio: Rate: regular rate GI: Inspection: normal to inspection GI Palp: Yes Soft to palpation and No Tenderness to palpation present (GI) Extrem: General: normal to inspection Psych: Appearance: grossly normal Mental Status: mental status grossly normal H&P: Results Labs Labs: Short CBC 12/18/24 Range/Units 08:50 WBC 4.0 L (4.5-10.0) K/mm3 Hgb 11.4 L (12.0-15.0) g/dL Hct 37.8 (37.0-47.0) % Plt Count 339 (150-375) k/mm3 BMP 12/18/24 08:50 Sodium 141 Potassium 3.7 Chloride 109 H Carbon Dioxide 21 L BUN 8 Creatinine 0.69 L Glucose 93 Calcium 9.3 Liver Function 12/18/24 Range/Units 08:50 Total Bilirubin 0.5 (0.2-1.3) mg/dL AST 22 (14-36) U/L ALT 18 (6-35) U/L Alkaline Phosphatase 117 (38-126) U/L Albumin 4.0 (3.5-5.1) g/dL Assessment and Plan Assessment and plan (1) Preeclampsia in period: Code(s): O14.95 - Unspecified pre-eclampsia, complicating the puerperium Status: Acute Assessment and Plan: 39 yo who presents on PPD #8 after at 37w for GHTN pt presents with severe range BP and intractable MARRERO PIH labs wnl BP treated with 20 mg IV labetalol x1 Magnesium sulfate prophylaxis started with 4g bolus and 2g maintenance dose Admit for Mag therapy and BP observation will monitor I&Os
--- NOTE | 2024-12-18 20:35 | PC.NURSE ---
Dr. Gonzales called in for an update. This RN notified MD of blood pressures and patient concern of staying until the morning. Orders clarified to stop magnesium therapy at 2200 and that patient would be able to leave in the morning if blood pressures are monitored and not of concern.
--- NOTE | 2024-12-18 21:24 | PC.NURSE ---
Dr. Gonzales called and notified of discussion with patient regarding plans of care. MD notified that patient would need to be discharged at 0500 tomorrow morning. MD okay with patient leaving at 0500 with the exception that blood pressures are monitored and not of concern. New orders to give Labetalol at 0400 and call MD with updated pressures before 0500.
[2024-12-19] VITALS: BP 157/93; PULSE 60
--- NOTE | 2024-12-19 00:20 | PC.NURSE ---
Dr Gonzales informed of last 3 BP results and pt requesting po meds and d/c. Pt very upset about being here all night and is verbal about that. New orders received for po labetalol and to d/c home.
[2024-12-19] MEDS: LABETALOL HCL 100 MG TABLET 200 MG PO (00:27)
--- NOTE | 2024-12-19 00:30 | PC.NURSE ---
RN talked with patient regarding the importance of calling and scheduling an appointment with Dr. Gonzales for her hypertension. Patient agreed to a follow up appointment.
[2024-12-19 01:03] VITALS: PULSE 61; RESP 16; TEMP 36.8
[2024-12-19 01:04] VITALS: BP 152/99; PULSE 61
--- NOTE | 2024-12-19 01:14 | PC.NURSE ---
This RN contacted Dr. Gonzales regarding patients last blood pressure of 152/99. MD confirmed discharge orders at this time and to have patient schedule an appointment with him next week for her blood pressures.
--- NOTE | 2024-12-19 01:15 | PC.NURSE ---
This RN reiterated the importance of calling and scheduling an appointment at Dr. Gonzales's office next week. Patient states Okay, I guess . All questions asked/answered and patient verbalized understanding. Patient agrees to discharge as requested.
--- NOTE | 2024-12-19 01:30 | PC.NURSE ---
Patient urinated multiple times from [id number] but did not measure. Patient was educated to keep hat in the toilet for accurate I&O measurements. Patient removed hat from the toilet before urination.
--- NOTE | 2024-12-22 08:00 | P.PNOB_ITS ---
OB - Triage/Final Diagnosis Visit Information Date of evaluation: 12/18/24 Reason for evaluation: other ( preeclampsia ) Comments/Additional reasons for admission: I have assessed the risk for this patient, Estefani Brown, and determined that she would benefit from observation care. Evaluation Laboratory results: Laboratory Tests 12/18/24 08:50 WBC 4.0 L RBC 4.75 Hgb 11.4 L Hct 37.8 MCV 79.6 L MCH 24.0 L MCHC 30.2 L RDW 13.8 Plt Count 339 MPV 11.6 H Immature Gran % (Auto) 0.2 Neut % (Auto) 60.5 Lymph % (Auto) 28.9 [place] % (Auto) 7.2 Eos % (Auto) 2.7 Baso % (Auto) 0.5 Lymph # (Auto) 1.16 [place] # (Auto) 0.3 Eos # (Auto) 0.1 Baso # (Auto) 0.0 Abs Immat Gran (auto) 0.01 Absolute Neuts (auto) 2.4 Absolute Nucleated RBC 0.000 Nucleated RBC % 0.0 Sodium 141 Potassium 3.7 Chloride 109 H Carbon Dioxide 21 L Anion Gap 11 BUN 8 Creatinine 0.69 L Estim Creat Clear Calc Not Reportable Estimated GFR > 60 Glucose 93 Uric Acid 5.7 Calcium 9.3 Total Bilirubin 0.5 AST 22 ALT 18 Alkaline Phosphatase 117 Total Protein 8.0 Albumin 4.0
== END 2024-12-19 01:30 | disposition home or self-care (01) ==
LOC: ANHOBOP 09:47 → ANHOBPP 09:47
PROVIDERS: Admitting Provider Student in an Organized Health Care Education/Training Program; Visit Provider Student in an Organized Health Care Education/Training Program
DX: O14.95 Unspecified pre-eclampsia, complicating the puerperium (principal)
CPT/HCPCS: 36415; 80053; 84550; 85025; 96365; 96366; 96375; A9270; G0378; G0379; J2405; J3475; J7120

== ENCOUNTER 2025-07-20 15:24 | Outpatient (CLI) | payer OTHER, SELFPAY ==
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
--- OUTSIDE RECORDS SUMMARY | 2025-07-20 16:04 | XMS_ITS | Encounter Summary ---
Author Organization [facility] Healthcare Address [address] [place] [address] Care Team Providers Care Campaign Manager Name Role Phone Art Ayala NP Primary Care Provider [phone] Nico Aquino MD Unavailable [phone] Tali Cade MD Primary Care Provider [phone] Mandi Redmond NP Primary Care Provider [phone] Tommy Lacy MD Unavailable [phone] Jayy Florian MD Unavailable [phone] Charlie Gonzales MD Unavailable [phone] Rachell Tomas DIGITAL COMPUTER OPERATOR Primary Care Provider [phone] Encounter Details Date Type Department Care Team (Late st Contact Info) Description 07/17/2019 Telephone [facility] at the [address] [address] Oma Aaron, CLT Social History Tobacco Use Types Packs/Day Years Used Date Smoking Tobacco: Never Smokeless Tobacco: Never Alcohol Use Standard Drinks/Week Comments Yes 0 (1 standard drink = 0.6 oz pur e alcohol) PHQ-2 Answer Date Recorded PHQ-2 Score 2 07/16/2019 Comments Yes Sex and Gender Information Value Date Recorded Sex Assigned at Not on file Legal Sex Female 10:56 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 Gender Identity Female 06/14/2021 9:17 AM CDT Sexual Orientation Not on file 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 Not on file Not on file documented as of this encounter Plan of Treatment Not on file documented as of this encounter Visit Diagnoses Not on filedocumented in this encounter Additional Health Concerns Infection Onset Date Last Indicated Resolved Time COVID: Suspected 05/18/2025 05/18/2025 05/18/2025 10:47 AM CDT documented as of this encounter Care Teams Campaign Manager Relationship Specialty [place] [address] [facility] [address] [place] [address] PCP - General 01/05/17 01/09/20 Tali Cade MD [address] [place] [address] [address] [place] [address] PCP - General Internal Medicine 01/10/20 04/16/23 Mandi Redmond NP [address] [place] [address] [address] [place] [address] PCP - General Internal Medicine 04/17/23 01/27/24 Rachell Tomas NP [address] [facility] [address] [place] [address] PCP - General Family Medicine 02/09/25 Nico Aquino MD [address] [place], [place] [address] [place] [address] Consulting Physician Obstetrics and Gynecology 11/04/19 Tommy Lacy MD [address] [place] [address] [address] [place] [address] Consulting Physician Internal Medicine 04/17/23 Jayy Florian MD [address] [facility] [address] [place] [address] Consulting Physician Internal Medicine 12/23/24 Charlie Gonzales MD [address] [place] [address] Consulting Physician Obstetrics and Gynecology 12/30/24 documented as of this encounter
--- OUTSIDE RECORDS SUMMARY | 2025-07-20 16:04 | XMS_ITS | Encounter Summary ---
Author Organization [facility] Address [address] [place] [address] Phone Care Team Providers Care Shop Helper Name Role Phone Art Ayala NP Primary Care Provider [phone] Nico Aquino MD Unavailable [phone] Tali Cade MD Primary Care Provider [phone] Mandi Redmond COMPUTER PROGRAMMING MANAGER Primary Care Provider [phone] Tommy Lacy MD Unavailable [phone] Jayy Florian MD Unavailable [phone] Charlie Gonzales MD Unavailable [phone] Rachell Tomas COMPUTER PROGRAMMING MANAGER Primary Care Provider [phone] Encounter Details Date Type Department Care Team (Late st Contact Info) Description 09/27/2017 Orders Only [facility] ProviderKaren MD [address] [place] [address] Social History Tobacco Use Types Packs/Day Years Used Date Smoking Tobacco: Never Smokeless Tobacco: Never Alcohol Use Standard Drinks/Week Comments Yes 0 (1 standard drink = 0.6 oz pur e alcohol) Comments No Sex and Gender Information Value Date Recorded Sex Assigned at Not on file Legal Sex Female 10:56 AM 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 us Historical Provider LAB BLOOD ORDERABLES Neva l Result documented in this encounter Visit Diagnoses Not on filedocumented in this encounter Additional Health Concerns Infection Onset Date Last Indicated Resolved Time COVID: Suspected 05/18/2025 05/18/2025 05/18/2025 10:47 AM CDT documented as of this encounter Care Teams Shop Helper Relationship Specialty [place] [address] [place] [address] PCP - General 01/05/17 01/09/20 Tali Cade MD [address] [place] [address] [address] [place] [address] PCP - General Internal Medicine 01/10/20 04/16/23 Mandi Redmond NP [address] [place] [address] [address] [place] [address] PCP - General Internal Medicine 04/17/23 01/27/24 Rachell Tomas NP [address] [facility] [address] [place] [address] PCP - General Family Medicine 02/09/25 Nico Aquino MD [address] [place] [address] [address] [place] [address] Consulting Physician Obstetrics and Gynecology 1/28/20 Tommy Lacy MD [facility] [address] [place] [address] Consulting Physician Internal Medicine 04/17/23 Jayy Florian MD [facility] [address] [place] [address] Consulting Physician Internal Medicine 12/23/24 Charlie Gonzales MD [address] [place] [address] Consulting Physician Obstetrics and Gynecology 12/30/24 documented as of this encounter
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
--- OUTSIDE RECORDS SUMMARY | 2025-07-20 16:04 | XMS_ITS | Clinical Summary ---
Author Organization [facility] Address [address] [place] [address] Care Team Providers Care Operation Agent Name Role Phone Unavailable Primary Care Provider Unavailabl e Source Comments [facility],non-owned Affiliates and Associated Physician Practices is amultiple site organization consisting of ambulatory clinics and hospital sitesin [place], [place], [place] and [place]. This disclosure is being madepursuant to the Care Everywhere program and may not contain all information available regarding this patient. Last updated 18.[facility] Allergies No known active allergies Medications * Be aware that medications may not be up to date on this document. Alwaysverify current medications with the patient. amoxicillin (AMOXIL) 250 MG capsule Take 250 mg by mouth every 8 hours Active sertraline (ZOLOFT) 25 MG tablet Take 1 Tab by mouth once daily 60 Tab 4 11/01/2015 Active ibuprofen (MOTRIN) 600 MG tablet Take 1 Tab by mouth every 6 hours as needed for Pain 12 Tab 0 12/10/2015 Active metoclopramide, disintegrating, (METOZOLV ODT) 5 MG tablet Take 1 Tab by mouth every 6 hours as needed for Nausea/Vomi ting 20 Tab 09/16/2016 Active Vit-Fe Fumarate-FA ( VITAMIN) 27-0.8 MG Take by mouth once daily 30 Tab 09/16/2016 Active Active Problems Patient Care Coordination No te Formatting of this note migh t be different from the original. [id number] 05-24-15 pt cancelled Nexplanon procedure 07/14/2015: FMLA FORMS HAVE BEEN FAXED TO [facility] AT [phone]. THEY HAVE BEEN SCANNED INTO [employer] AND MAILED TO THE ADDRESS ON FILE. Problem Noted Date Diagnosed Date Depression 11/01/2015 Overview (11/01/2015): Patient with prior diagnosis depression from 06/15/15 [...] but accepts referral to our outpatient program. Contraception management 11/01/2015 Overview (11/01/2015): Patient still on Depo. Does not want Nexplanon. Reviewed IUD options. For now she would like to continue on Depo. 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 06/15/2015 Overview (03/04/2015): POS 03/02/15 Supervision of normal 12/13/2014 06/15/2015 Overview (01/06/2015): A+/I/-/- NR gc/ct neg Pap ASCUS HPV neg GCT 80 Hgb 9.0 Nausea & vomiting 08/09/2014 12/13/2014 Supervision of normal 08/23/2011 08/09/2014 GBS (group B Streptococcus c arrier), +RV culture, currently 08/23/2011 08/09/2014 Immunizations Immunization Administration Dates Next Due INFLUENZA VACCINE 08/24/2011 TDAP (7yrs+) 01/05/2015,08/24/2011 Family History Medical History Relation Name Comments Asthma Sister 1 Seizures Sister 2 Arthritis Neg Hx Bleeding Disorders Neg Hx Cancer Neg Hx Clotting Disorder Neg Hx Diabetes Neg Hx Genetic/Metabolic Disease Neg Hx Heart Disease Neg Hx Hypertension Neg Hx Kidney Disease Neg Hx Multiple Births Neg Hx Labor Neg Hx Sickle Cell Anemia Neg Hx Stroke Neg Hx Toxemia Neg Hx Tuberculosis Neg Hx Twins Neg Hx Relation Name Status Comments Father Alive Maternal Grandfather Alive Maternal Grandmother Alive Mother Alive Paternal Grandfather Alive Paternal Grandmother Alive Sister 1 Sister 2 Social History Tobacco Use Types Packs/Day Years Used Date Smoking Tobacco: Never Smokeless Tobacco: Never Tobacco Cessation:Counseling Given: No Alcohol Use Standard Drinks/Week Comments No 0 (1 standard drink = 0.6 oz pur e alcohol) Comments Yes Sex and Gender Information Value Date Recorded Sex Assigned at Not on file Legal Sex Female 12:43 PM [employer]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 Gender Identity Not on file Sexual Orientation Not on file Last Filed Vital Signs Vital Sign Reading Time Taken Comments Blood Pressure 133/73 09/19/2016 11:12 PM [employer]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 Pulse 79 09/19/2016 11:12 PM PE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 Temperature 37.3 C (99.2 F) 09/19/2016 11:12 PM PE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 Respiratory Rate 18 09/19/2016 11:12 PM PE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 Oxygen Saturation 100% 09/19/2016 11:12 PM PE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 Inhaled Oxygen Concentration - - Weight 60.8 kg (134 lb) 09/19/2016 11:10 PM PE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 Height 160 cm (5' 3) 09/19/2016 11:10 PM PE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 Body Mass Index 23.74 09/19/2016 11:10 PM PE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 Plan of Treatment Health Maintenance Due Date Last Done Comments HIV SCREENING 2007 HEPATITIS C SCREENING 08/12/2010 HEPATITIS B VACCINE (1 of 3 - 19+ 3-dose series) 2011 PAP SMEAR 2013 HPV VACCINE (1 - 3-dose SCDM series) 2019 DEPRESSION SCREENING 10/08/2024 DTAP/TDAP/TD VACCINES (3 - T d or Tdap) 01/05/2025 01/05/2015, 08/24/2011 COVID-19 VACCINE ( - 2023-2 5 season) 2025 INFLUENZA VACCINE (#1) 2025 7, 08/24/2011 ZOSTER VACCINE (1 of 2) 2042 Respiratory Syncytial Virus (RSV) Vaccine Pt: or over 60 yrs (1 - 1-dose 75+ series) 2067 HIB VACCINE Aged Out No longer eligi ble based on patient's age to complete this topic MENINGOCOCCAL (Group B) VACCINE SHARED DECISION-MAKING Aged Out No longer eligible based on patient's age to complete this topic MENINGOCOCCAL GROUPS A/C/Y/W VACCINE Aged Out No longer eligible b ased on patient's age to complete this topic PNEUMOCOCCAL VACCINE Aged Out No long er eligible based on patient's age to complete this topic Insurance [place] [employer] [employer] [facility] SELF PAY NO INSURANCE Member Subscriber Plan / Payer (Ef fective for All Dates) Name:Estefani Lemus Member ID:Not on file Relation to Subscriber:Not on file Name:ESTEFANI LEMUS Subscriber ID:Not on file (Home) Address: [address] [place] [phone] Payer ID:Not on file Group ID:Not on file Type:Self Pay Address: [place], [place] [employer] [place] Advance Directives * Full Code (Latest Code Status on File) Date Activated Date Inactivated Comments 04/02/2015 10:01 PM 04/04/2015 12:35 PM * Full Code Date Activated Date Inactivated Comments 03/23/2015 6:10 PM 03/26/2015 4:54 PM * Full Code Date Activated Date Inactivated Comments 11/07/2014 3:18 AM 11/07/2014 5:07 AM * Full Code Date Activated Date Inactivated Comments 10/17/2014 4:03 AM 10/17/2014 6:25 AM * Full Code Date Activated Date Inactivated Comments 08/09/2014 9:58 PM 08/10/2014 1:05 AM
[2025-07-20 16:36] LABS: Beta HCG Quantitative < 2.39 mIU/ML
== END 2025-07-20 15:25 | disposition home or self-care (01) ==
LOC: ANHLAB 15:25
PROVIDERS: Visit Provider Student in an Organized Health Care Education/Training Program
DX: O02.1 Missed abortion (principal); Z3A.00 Weeks of gestation of pregnancy not specified
CPT/HCPCS: 36415; 84702